=== PATIENT | female | born 1965 | race Caucasian/White ===

== ENCOUNTER 2017-01-25 01:41 | Emergency (ER) | payer MEDICARE, MEDICAID ==
[~2017-01-25] VITALS: Ht 157.5 cm; Wt 46.3 kg
[~2017-01-25 01:41] MED LIST: ALBUTEROL SULFAT IH; ALBUTEROL2.5 MG/NEB INH; AMITRIPTYLINE 225 MG PO; BACTRIM DS 8001 TA1 PO; BENZONATATE100 MG PO; BUSPIRONE HCL7.5 MG PO; DARVOCET-N 1001 EACH PO; ESTRACE 2MG. TAB2 MG PO; FLEXERIL10 MG PO; GABAPENTIN300 MG PO; GABAPENTIN800 MG PO; HORMONE PO; IBU-8800 MG PO; KEFLEX 500MG.500 MG PO; LORTAB 5/500 501 TAB PO; MEDROL 4MG. DOSE4 MG PO; MOTRIN800 MG PO; NAPROSYN500 M1 PO; PERCOCET 325 MG1 TA3 PO; PERCOCET 5/3251 EACH PO; PERCOCET1 TAB PO; PREDNISONE 20MG20 MG PO; PRILOSEC40 MG PO; PROTONIX 40MG T40 MG PO; REGLAN 10 MG TA10 MG PO; ROBAXIN-750750 MG PO; SEPTRA DS 800 M1 TAB PO; TRAZODONE 50MG50 MG PO; TRAZODONE150 MG PO; VICODIN 5/500 T1 TAB PO; VICODIN 5/6 EACH/PAK OR; VOLTAREN75 MG PO; ZANTAC 150150 MG PO; ZITHROMAX Z PA250 MG PO; ZOFRAN ODT4 MG PO; ZYRTEC10 MG PO
[2017-01-25] MEDS ORDERED: BACTRIM DS 8001 TA1 PO (02:18)
--- NOTE | 2017-01-25 02:18 | Emergency Room Report ---
History of Present Illness Time Seen by [id number] Presenting Problem in Triage Pt arrived:Walked Presenting Problem:AREA ON UPPER RIGHT FOREARM, THINKS IT WAS AN INSECT BITE. AREA RED BUMP WITH PINPOINT CENTER WHICH HAS HAD SOME CLEAR DRAINAGE. 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 N Clinical Suspician of Infection? N Mental Status: 1 - Regular (Normal Baseline) Sepsis Risk:Possible Sepsis Risk Have you (or family members/close friends) recently traveled outside the [place]? N If Yes, where/when: Have you had exposure to infectious disease within the past month? N TB? Other? Specify: Source patient, RN notes reviewed, RN/MD Exam Limitations no limitations Comment This is a 52-year-old female arriving to the emergency room with a RIGHT proximal forearm sore, for the past 24 hours. Patient has any fever, chills. She stated that she has had previous similar abscesses on her body that have spontaneously drained, except the current one. ALLERGIES Coded Allergies: MILK (FOOD) (VOMITTING 10/22/15) adhesive (10/22/15) codeine (10/22/15) hydrocodone (10/22/15) nickel (10/22/15) Home Medications Reported Medications ALBUTEROL (Albuterol 0.083% Neb) 1 INH QID Albuterol Sulfate 0.5 IH Q4HP PRN BREATHING #60 History Medical History General CAD? No Angina: No OR: No Hypertension? No Hyperlipidemia? No CHF? No DVT? No PE? No COPD? Yes Asthma? No Anemia? No GERD? No Gastric ulcers? No GI Bleed? No Hernia? No Thyroid Problems? No Hypothyroidism? No CVA? Yes Seizures? Yes Diabetes? No Renal Insuffiency? No End Stage Renal Disease? No UTI? Yes Stones? No BPH? No GB Disease: No Nephritic Syndrome? No Asplenia? No Hepatitis? No Sickle Cell Disease? No Arthritis? No Migraines? No Cataracts? No Glaucoma? No MRSA? No HIV? No TB? No Anxiety? No Depression? No Cancer? 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 N/A Family History Family Hx Diabetes Yes CAD Yes Hypertension Yes Hyperlipidemia No Cancer Yes TB No Social History Smoking Hx Smoker: Current Every Day Smoker Tobacco: Yes Type Cigarettes Packs/day 1 1/2 - 2 Packs Alcohol Alcohol: No Review of Systems All Other Systems Reviewed and Negative Skin lumps (RIGHT proximal forearm) Physical Exam Vital Signs Vital Signs Date Time Temp Pulse Resp B/P Pulse O2 O2 Flow FiO2 Ox Delivery Rate 01/25 0253 98.1 127 20 126/96 100 01/25 0252 98.1 127 20 126/96 100 01/25 0145 98.1 127 20 126/96 100 General Appearance normal appearance, WD/WN, no apparent distress Respiratory Status Yes: trachea midline, chest symmetrical, non tender chest. No: respiratory distress. Lung Sounds bilateral: normal breath sounds, lungs clear. 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 No Comment She tolerated the procedure (I&D) well, no immediate complications. Advised patient to return to the emergency room or follow-up with PCP within 2 days for packing exchange. Results/Orders Current Medication Orders Sig/Natalie Start time Last Medication Dose Route Stop Time Status Admin Trimethoprim/ 0 .STK-MED ONE 01/25 246 DC Sulfamethoxazole PO Lidocaine HCl 0 .STK-MED ONE 01/25 218 DC .ROUTE Trimethoprim/ 1 TABLET ONCE ONE 01/25 215 DCr 01/25 Sulfamethoxazole PO 01/26 216 024 Orders Procedure Date/time Status WOUND CARE PER NURSE 01/25 238 Active CULTURE, WOUND 01/25 237 Active Procedures Incision and Drainage Incision and Drainage Risks/benefits discussed with pt/guardian? Yes Problem type Abcess Location RIGHT forearm, proximal aspect Size cm 2.0 Anesthesia Lidocaine 1% Blade Size 11 I & D Procedure Simple, betadine prep, sterile drapes applied, Scalpel incision cm- (2), Pus small amount, Cultured, Irrigation ml- (20), Packed, Sterile Dressing Applied. Departure Departure Time of Disposition 238 Disposition DC Home or Self Care(routine) Clinical Impression Primary Impression: Abscess Condition STABLE Patient Instructions DI for Skin Abscess, Incision and Drainage of a Skin Abscess Additional Instructions Please return to [facility], ER or [facility] in 48 hrs for packing exchange. Change dressing daily. Take the antibiotics prescribed as directed. Discharge Counseling Counseled pt/family regarding diagnosis, medications/RX, home care, follow up needs Comment Please return to [facility], ER or [facility] in 48 hrs for packing exchange. Change dressing daily. Take the antibiotics prescribed as directed. Prescriptions Current Visit Scripts SULFAMETHOXAZOLE W/TRIMETHOPRI (Bactrim Ds Tab) 1 TABLET PO BID #20 TAB ED Critical Care Critical Care No at 2734
[2017-01-25 02:53] VITALS: BP 126/96
== END 2017-01-25 02:54 | disposition home or self-care (01) ==
LOC: ER 01:41
PROC: 0H9DXZZ Drainage of Right Lower Arm Skin, External Approach (ICD-10-PCS; principal; 2017-01-25)
DX: L02.413 Cutaneous abscess of right upper limb (principal); J44.9 Chronic obstructive pulmonary disease, unspecified; F17.210 Nicotine dependence, cigarettes, uncomplicated